=== PATIENT | male | born 1995 ===

== ENCOUNTER 2022-06-18 02:05 | Emergency (ER) | payer SELFPAY ==
[2022-06-18 02:16] VITALS: BP 160/67; PULSE 74
[2022-06-18] MEDS ORDERED: Amoxicillin/Clavulanate K 875-125 MG Tab PO ONE (02:18)
== END 2022-06-18 02:29 | disposition home or self-care (01) ==
LOC: MW.ED 02:05
DX: J02.9 Acute pharyngitis, unspecified (principal); Z79.899 Other long term (current) drug therapy
CPT/HCPCS: 99282; A9270

== ENCOUNTER 2022-06-18 04:36 | Emergency (ER) | payer SELFPAY ==
[2022-06-18] MEDS ORDERED: Dexamethasone 10 MG/ML SDV IVPUSH ONE (04:41)
[2022-06-18] MEDS ORDERED: Iopamidol 755 MG/ML 500 ML Multipack Bottle IVPUSH ONE (04:58)
[2022-06-18 05:34] LABS: BLOOD UREA NITROGEN,BUN 15 mg/dL (7.0-18.0); CARBON DIOXIDE,CO2 31.4 mmol/L (21.0-32.0); CHLORIDE,CL 101 mmol/L (98-107); ESTIMATED GFR 78 mL/min (>60); GLUCOSE RANDOM 103 mg/dL (74-106); POTASSIUM,K 3.8 mmol/L (3.5-5.1); SODIUM,NA 141 mmol/L (136-148)
[2022-06-18 06:44] VITALS: BP 145/71; PULSE 74
== END 2022-06-18 06:40 | disposition home or self-care (01) ==
LOC: MW.ED 04:36
DX: J02.9 Acute pharyngitis, unspecified (principal)
CPT/HCPCS: 36415; 70491; 71045; 80053; 85025; 96374; 99285; J1100; Q9967